=== PATIENT | female | born 1965 | race Two or more races ===

== ENCOUNTER 2020-08-11 11:42 | Day surgery (SDC) | payer OTHER ==
[~2020-08-11 11:42] MED LIST: BUPIVACAINE 0.25% 75 MG/30 ML VIAL ONE; BUPIVACAINE 0.5 % PF 150 MG/30 ML VIAL ONE; EPINEPHRINE (1:1000) 1 MG/ML AMPUL ONE
[2020-08-11] MEDS ORDERED: ROCURONIUM BROMIDE 50 MG/5 ML ONE (13:29)
[2020-08-11] MEDS ORDERED: HYDROMORPHONE INJ 2 MG/ML DISP.SYRIN ONE (13:29)
[2020-08-11] MEDS ORDERED: MORPHINE SULFATE/PF 10 MG/10ML (1MG/ML) AMPUL ONE (15:01)
[2020-08-11] MEDS ORDERED: ONDANSETRON HCL/PF 4 MG/2 ML VIAL ONE (17:00)
== END 2020-08-11 17:20 | disposition home or self-care (01) ==
LOC: EDBD 11:42 → DS 11:42
PROVIDERS: ATTEND Student in an Organized Health Care Education/Training Program
DX: M75.101 Unspecified rotator cuff tear or rupture of right shoulder, not specified as traumatic (principal); E66.01 Morbid (severe) obesity due to excess calories; E11.9 Type 2 diabetes mellitus without complications; Z79.899 Other long term (current) drug therapy
CPT/HCPCS: 29827; 36415; 82962; 86850; A4217; C1713 ×2; J0171; J0690; J1100; J1170; J1885; J2274; J2405 ×2; J2704; J3490 ×3